=== PATIENT | male | born 1990 | race American Indian/Alaskan Native ===

== ENCOUNTER 2019-01-22 22:33 | Emergency (ER) | payer OTHER ==
[2019-01-23] MEDS ORDERED: FLEXERIL PO ONE (04:11)
[2019-01-23] MEDS ORDERED: IBUPROFEN PO ONE (04:11)
[2019-01-23] MEDS ORDERED: DECADRON IM ONE (04:12)
--- NOTE | 2019-01-23 04:37 | Emergency Department Report ---
ED Back Pain/Injury HPI - General Chief Complaint: Back Pain/Injury Stated Complaint: BACK PAIN Time Seen by Provider: 01/23/19 04:09 Source: patient Limitations: No Limitations - History of Present Illness Initial Comments: Patient is doing 8-year-old male who presents for right low back pain times today because his aching pulling spasm 03/29 patient states he w flako up like this denies injury or trauma there is no weakness or paralysis no loss or decrease in bowel or bladder function patient is tolerating by mouth intake visual no urinary frequency urgency or dysuria MD Complaint: back injury Onset/Timin -: days(s) Similar Symptoms Previously: No Place: home Radiation: right leg Severity: moderate Severity scale (0 -10): 5 Quality: burning, sharp Consistency: constant Improves With: none Worsens With: movement, sitting upright Context: unknown Associated Symptoms: denies: weakness, difficulty walking, incontinence, fever/chills, headaches - Related Data Previous Rx's Medication Instructions Recorded Last Taken Type Acetaminophen/Codeine [Tylenol #3] 1 tab PO Q6H PRN #20 tab 03/31/16 Unknown Rx Amoxicillin [Amoxicillin TAB] 875 mg PO BID #20 tablet 05/27/16 Unknown Rx Ibuprofen [Motrin 600 MG tab] 600 mg PO Q8H PRN #50 tablet 05/27/16 Unknown Rx Cyclobenzaprine [Flexeril] 10 mg PO TID #30 tablet 01/23/19 Unknown Rx Menthol/Camphor [[place] 1 applic TP QID PRN #1 tube 01/23/19 Unknown Rx Ointment] Naproxen [Naprosyn] 500 mg PO BID PRN #30 tablet 01/23/19 Unknown Rx Allergies Allergy/AdvReac Type Severity Reaction Status Date / Time No Known Allergies Allergy Verified 03/31/16 23:19 ED Review of Systems ROS: Stated complaint: BACK PAIN Other details as noted in HPI Constitutional: denies: chills, fever Eyes: denies: eye pain, eye discharge, vision change ENT: denies: ear pain, throat pain Respiratory: denies: cough, shortness of breath, wheezing Cardiovascular: denies: chest pain, palpitations Endocrine: no symptoms reported Gastrointestinal: denies: abdominal pain, nausea, diarrhea Genitourinary: denies: urgency, dysuria Musculoskeletal: back pain, myalgia. denies: joint swelling, arthralgia Skin: denies: rash, lesions Neurological: denies: headache, weakness, paresthesias Psychiatric: denies: anxiety, depression Hematological/Lymphatic: denies: easy bleeding, easy bruising ED Past Medical Hx - Past Medical History Previous Medical History?: Yes Hx Asthma: Yes - Surgical History Past Surgical History?: Yes Additional Surgical History: Facial - Social History Smoking Status: Current Every Day Smoker Substance Use Type: Alcohol - Medications Home Medications: Home Medications Medication Instructions Recorded Confirmed Last Taken Type Acetaminophen/Codeine [Tylenol #3] 1 tab PO Q6H PRN #20 tab 03/31/16 Unknown Rx Amoxicillin [Amoxicillin TAB] 875 mg PO BID #20 tablet 05/27/16 Unknown Rx Ibuprofen [Motrin 600 MG tab] 600 mg PO Q8H PRN #50 tablet 05/27/16 Unknown Rx Cyclobenzaprine [Flexeril] 10 mg PO TID #30 tablet 01/23/19 Unknown Rx Menthol/Camphor [[place] 1 applic TP QID PRN #1 tube 01/23/19 Unknown Rx Ointment] Naproxen [Naprosyn] 500 mg PO BID PRN #30 tablet 01/23/19 Unknown Rx ED Physical Exam - General Limitations: No Limitations General appearance: alert, in no apparent distress - Head Head exam: Present: atraumatic, normocephalic, normal inspection - Eye Eye exam: Present: PERRL, EOMI Pupils: Present: normal accommodation - ENT ENT exam: Present: mucous membranes moist - Neck Neck exam: Present: normal inspection, full ROM. Absent: tenderness, meningismus, lymphadenopathy, thyromegaly - Expanded Neck Exam Expanded Neck exam: Absent: tenderness, midline deformity, anterior neck swelling, thyroid mass, carotid bruit, tracheal deviation - Respiratory Respiratory exam: Present: normal lung sounds bilaterally. Absent: respiratory distress, chest wall tenderness - Cardiovascular Cardiovascular Exam: Present: regular rate, normal rhythm, normal heart sounds. Absent: systolic murmur, diastolic murmur, rubs, gallop - GI/Abdominal GI/Abdominal exam: Present: soft, normal bowel sounds. Absent: tenderness, bruit, hernia - Rectal Rectal exam: Present: deferred - exam: Present: other (exam deferred ) - Extremities Exam Extremities exam: Present: normal inspection, full ROM, normal capillary refill. Absent: pedal edema, joint swelling, calf tenderness - Back Exam Back exam: Present: normal inspection, full ROM, tenderness, muscle spasm, paraspinal tenderness. Absent: CVA tenderness (R), CVA tenderness (L), vertebral tenderness, rash noted - Expanded Back Exam Expanded Back exam: Present: saddle anesthesia Back exam: Sciatic Notch Tenderness: Right (positive straight leg raise right ), Negative Straight Leg Raising: Left, Right - Neurological Exam Neurological exam: Present: alert, oriented X3, CN II-XII intact, normal gait, reflexes normal - Expanded Neurological Exam Expanded Patient oriented to: Present: person, place, time Speech: Present: fluid speech Cranial nerves: EOM's Intact: Normal, Gag Reflex: Normal, Tongue Deviation: Normal, Nystagmus: Normal, Facial Sensation: Normal Cerebellar function: Finger to Nose: Normal, Heel to Mir: Normal, Romberg: Normal Upper motor neuron: Will Neglect: Normal, Pronator Drift: Normal, Babinski Sign: Normal, Sensory Extinction: Normal Sensory exam: Upper Extremity Light Touch: Normal, Upper Extremity Pin Prick: Normal, Upper Extremity Temperature: Normal, UE 2 Point Discrimination: Normal, Lower Extremity Light Touch: Normal, Lower Extremity Pin Prick: Normal, Lower Extremity Temperature: Normal, LE 2 Point Discrimination: Normal Motor strength exam: RUE: 5, LUE: 5, RLE: 5, LLE: 5 DTR: bicep (R): 2+, bicep (L): 2+, knee (R): 2+, knee (L): 2+, ankle (R): 2+, ankle (L): 2+ Best Eye Response (Vinh): (4) open spontaneously Best Motor Response (Vinh): (6) obeys commands Best Verbal Response ([place]): (5) oriented Vinh Total: 15 - Psychiatric Psychiatric exam: Present: normal affect, normal mood - Skin Skin exam: Present: warm (this is his Steroids Y), dry, intact, normal color. Absent: rash ED Course Vital Signs 01/22/19 01/23/19 22:43 04:18 Temperature 97.6 F Pulse Rate 72 Respiratory 18 16 Rate Blood Pressure 131/88 O2 Sat by Pulse 97 Oximetry ED Medical Decision Making - Radiology Data Radiology results: report reviewed, image reviewed no fracutre no soft tissue abnormality - Medical Decision Making no fracutre no soft tissue abnormality ,mild lumbar scoliosis , pain is improved with medications given in ed, plan: nsaid, muscle relaxants, analgesic balm, follow up with ortho in 2 days, [facility], pt verbalized agreement and understanding of discharge plan. Critical care attestation.: If time is entered above; I have spent that time in minutes in the direct care of this critically ill patient, excluding procedure time. ED Disposition Clinical Impression: Low back strain Qualifiers: Encounter type: initial encounter Qualified Code(s): S39.012A - Strain of muscle, fascia and tendon of lower back, initial encounter Disposition: TO HOME OR SELFCARE Is pt being admited?: No Does the pt Need Aspirin: No Condition: Stable Instructions: Muscle Strain (ED), Low Back Strain (ED), Core Strengthening Exercises (GEN) Prescriptions: Cyclobenzaprine [Flexeril] 10 mg PO TID #30 tablet Naproxen [Naprosyn] 500 mg PO BID PRN #30 tablet PRN Reason: pain Menthol/Camphor [[place] Ointment] 1 applic TP QID PRN #1 tube PRN Reason: pain Referrals: KAIN ROLLE MD [Staff Physician] - 3-5 Days [facility] [Outside] - 3-5 Days Forms: Work/School Release Form(ED) Time of Disposition: 05:13
[2019-01-23 05:31] VITALS: BP 128/77
--- NOTE | 2019-01-23 06:01 | XRay Report ---
l spine PROCEDURE: LUMBAR SPINE, 2 VIEWS TECHNIQUE: Lumbar spine radiographs, frontal and lateral views. CPT 29575 HISTORY: Trauma COMPARISONS: None . FINDINGS: Alignment: Normal . Vertebral body heights/Disk spaces: Normal . Fracture(s): None . Facets: Normal . Bone mineralization: Normal . IMPRESSION: Normal Examination . This document is electronically signed by Neo Catalan MD., Jan 23 2019 05:59:51 AM ET
== END 2019-01-23 05:34 | disposition home or self-care (01) ==
LOC: ED 22:33
DX: S39.012A Strain of muscle, fascia and tendon of lower back, initial encounter (principal); X58.XXXA Exposure to other specified factors, initial encounter; Y93.89 Activity, other specified; Y92.89 Other specified places as the place of occurrence of the external cause; Y99.8 Other external cause status
CPT/HCPCS: 72100; 96372; 99283; J1100

== ENCOUNTER 2020-08-01 09:44 | Emergency (ER) | payer SELFPAY | END 2020-08-01 09:45 | disposition left against medical advice (07) | LOC: ED 09:44 | DX: Z20.2 Contact with and (suspected) exposure to infections with a predominantly sexual mode of transmission (principal); Z53.21 Procedure and treatment not carried out due to patient leaving prior to being seen by health care provider ==

== ENCOUNTER 2022-06-18 11:55 | Emergency (ER) | payer OTHER ==
[2022-06-18 12:39] VITALS: BP 116/90
[2022-06-18] MEDS ORDERED: IBUPROFEN 800 MG TAB PO ONE (13:06)
--- NOTE | 2022-06-18 13:06 | Emergency Department Report ---
ED Upper Extremity Inj HPI - General Chief Complaint: Shoulder Injury Stated Complaint: SHOULDER PAIN/BACK PAIN Source: patient Mode of arrival: Ambulatory Limitations: No Limitations - History of Present Illness Initial Comments: Patient is a 32-year-old male that comes to the emergency room after being showered with boxes while at work today. He states that a bunch of boxes fell on top of him. He is complaining of back and left shoulder pain. He is ambulatory to the ER with full range of motion of all extremities. He denied LOC. He has no abrasions lacerations or contusions. Complaint: Injury to:: left -: Sudden, hour(s) Other Injuries: back Handedness: right Place: work Severity scale (0 -10): 3 Improves With: none Worsens With: movement of extremity Context: direct blow Associated Symptoms: denies other symptoms - Related Data Previous Rx's Medication Instructions Recorded Last Taken Type Acetaminophen/Codeine [Tylenol #3] 1 tab PO Q6H PRN #20 tab 03/31/16 Unknown Rx Amoxicillin [Amoxicillin TAB] 875 mg PO BID #20 tablet 05/27/16 Unknown Rx Ibuprofen [Motrin 600 MG tab] 600 mg PO Q8H PRN #50 tablet 05/27/16 Unknown Rx Cyclobenzaprine [Flexeril] 10 mg PO TID #30 tablet 01/23/19 Unknown Rx Menthol/Camphor [[place] 1 applic TP QID PRN #1 tube 01/23/19 Unknown Rx Ointment] Naproxen [Naprosyn] 500 mg PO BID PRN #30 tablet 01/23/19 Unknown Rx Allergies Allergy/AdvReac Type Severity Reaction Status Date / Time No Known Allergies Allergy Verified 03/31/16 23:19 ED Review of Systems ROS: Stated complaint: SHOULDER PAIN/BACK PAIN Other details as noted in HPI Comment: All other systems reviewed and negative ED Past Medical Hx - Past Medical History Previous Medical History?: Yes Hx Asthma: Yes - Surgical History Past Surgical History?: Yes Additional Surgical History: Facial - Family History Family history: no significant - Social History Smoking Status: Current Every Day Smoker Substance Use Type: Alcohol - Medications Home Medications: Home Medications Medication Instructions Recorded Confirmed Last Taken Type Acetaminophen/Codeine [Tylenol #3] 1 tab PO Q6H PRN #20 tab 03/31/16 Unknown Rx Amoxicillin [Amoxicillin TAB] 875 mg PO BID #20 tablet 05/27/16 Unknown Rx Ibuprofen [Motrin 600 MG tab] 600 mg PO Q8H PRN #50 tablet 05/27/16 Unknown Rx Cyclobenzaprine [Flexeril] 10 mg PO TID #30 tablet 01/23/19 Unknown Rx Menthol/Camphor [[place] 1 applic TP QID PRN #1 tube 01/23/19 Unknown Rx Ointment] Naproxen [Naprosyn] 500 mg PO BID PRN #30 tablet 01/23/19 Unknown Rx ED Physical Exam - General Limitations: No Limitations General appearance: alert, in no apparent distress - Head Head exam: Present: atraumatic, normocephalic - Eye Eye exam: Present: normal appearance - ENT ENT exam: Present: mucous membranes moist - Neck Neck exam: Present: normal inspection - Respiratory Respiratory exam: Present: normal lung sounds bilaterally. Absent: respiratory distress, wheezes - Cardiovascular Cardiovascular Exam: Present: regular rate, normal rhythm. Absent: systolic murmur, diastolic murmur, rubs, gallop - GI/Abdominal GI/Abdominal exam: Present: soft, normal bowel sounds. Absent: distended - Rectal Rectal exam: Present: deferred - Extremities Exam Extremities exam: Present: normal inspection - Expanded Upper Extremity Exam Left Shoulder Exam: Present: full ROM. Absent: normal inspection, tenderness, swelling, abrasion, laceration, ecchymosis, deformity Upper Arm exam: Absent: normal inspection Elbow exam: Present: normal inspection Forearm Wrist exam: Present: normal inspection - Back Exam Back exam: Present: normal inspection, full ROM. Absent: tenderness, CVA tenderness (R), CVA tenderness (L), muscle spasm, paraspinal tenderness, vertebral tenderness, rash noted - Neurological Exam Neurological exam: Present: alert, oriented X3 - Psychiatric Psychiatric exam: Present: normal affect, normal mood - Skin Skin exam: Present: warm, dry, intact, normal color. Absent: rash ED Course Vital Signs 06/18/22 12:36 Temperature 98 F Pulse Rate 70 Respiratory 16 Rate Blood Pressure 116/90 [Left] O2 Sat by Pulse 100 Oximetry ED Medical Decision Making - Radiology Data Radiology results: report reviewed, image reviewed See report - Medical Decision Making Patient medicated with Motrin for pain. X-rays noted normal. Vital signs stable. Patient neurologically intact. He has full range of motion of all of his extremities. No neurovascular compromise. No vascular compromise. All extremities are warm Vital Signs 06/18/22 12:36 Temperature 98 F Pulse Rate 70 Respiratory 16 Rate Blood Pressure 116/90 [Left] O2 Sat by Pulse 100 Oximetry Patient being discharged home at discharge plan of care including diet, activity, medications and follow-up. He verbalizes understanding of plan of care. - Differential Diagnosis Rule out fracture, AC separation, dislocation Critical care attestation.: If time is entered above; I have spent that time in minutes in the direct care of this critically ill patient, excluding procedure time. ED Disposition Clinical Impression: Contusion Disposition: HOME / SELF CARE / HOMELESS Is pt being admited?: No Does the pt Need Aspirin: No Condition: Stable Instructions: Contusion Additional Instructions: Ice to sore areas. Motrin or Tylenol for pain Diet activity as tolerated Follow-up with PCP if pain persist All x-rays normal today Referrals: LUCIA RICK MD [Staff Physician] - 3-5 Days KAIN ROLLE MD [Staff Physician] - 3-5 Days Forms: Work/School Release Form(ED) Time of Disposition: 13:05
--- NOTE | 2022-06-18 13:25 | XRay Report ---
XR spine lumbosacral 2-3V INDICATION / CLINICAL INFORMATION: boxes fell hitting patient . COMPARISON: None available. FINDINGS: BONES/JOINT(S): No acute fracture or subluxation. No significant degenerative changes. No focal bone erosions or focal osteopenia to suggest inflammatory arthropathy. SOFT TISSUES: No significant abnormality. ADDITIONAL FINDINGS: None. Signer Name: Andrea Akbar MD Signed: 06/18/2022 1:21 PM Workstation Name: [facility]
--- NOTE | 2022-06-18 13:26 | XRay Report ---
XR shoulder 2+V LT INDICATION / CLINICAL INFORMATION: Patient hit by boxes.. COMPARISON: None available. FINDINGS: BONES/JOINT(S): No acute fracture or subluxation. No significant degenerative changes. No focal bone erosions or focal osteopenia to suggest inflammatory arthropathy. SOFT TISSUES: No significant abnormality. ADDITIONAL FINDINGS: None. Signer Name: Andrea Akbar MD Signed: 06/18/2022 1:21 PM Workstation Name: [email or web address]
== END 2022-06-18 14:23 | disposition home or self-care (01) ==
LOC: ED 11:55
DX: S40.012A Contusion of left shoulder, initial encounter (principal); F17.200 Nicotine dependence, unspecified, uncomplicated; J45.909 Unspecified asthma, uncomplicated; F10.20 Alcohol dependence, uncomplicated; X58.XXXA Exposure to other specified factors, initial encounter; Y93.89 Activity, other specified; Y92.89 Other specified places as the place of occurrence of the external cause; Y99.8 Other external cause status
CPT/HCPCS: 72100; 99283